=== PATIENT | male | born 1935 | race Two or more races ===

== ENCOUNTER 2022-06-30 19:26 | Emergency (ER) | payer OTHER ==
[~2022-06-30] VITALS: Ht 182.9 cm; Wt 80.0 kg
[2022-06-30 22:35] VITALS: BP 132/82
== END 2022-06-30 22:37 | disposition home or self-care (01) ==
LOC: ER 19:26 → EDBD 19:26 → ER 22:23
DX: S09.90XA Unspecified injury of head, initial encounter (principal); I48.91 Unspecified atrial fibrillation; F10.10 Alcohol abuse, uncomplicated; Y90.9 Presence of alcohol in blood, level not specified; W18.39XA Other fall on same level, initial encounter; Y93.89 Activity, other specified; Y92.89 Other specified places as the place of occurrence of the external cause; Y99.8 Other external cause status
CPT/HCPCS: 70450; 93005